=== PATIENT | male | born 1950 | race African-American/Black ===

== ENCOUNTER 2019-07-05 08:09 | Day surgery (SDC) | payer MEDICARE, MEDICAID ==
--- NOTE | 2019-06-13 12:57 | HP ---
HISTORY OF PRESENT ILLNESS: Mr. Ramos is a pleasant 68-year-old man presenting for long-standing lumbar back pain with limiting left lower extremity L5 pain. He has treated this in [place] and in [place] with epidural steroid injections and physical therapy with only limited success. He has an old MRI from [place] as well as a new MRI from [facility] reveals severe left-sided L5 foraminal stenosis that matches well with his symptoms. He hopes to move forward with surgery if possible. PAST MEDICAL HISTORY: Includes chronic pain syndrome, hepatitis C, hypertension, and osteoarthritis. SURGICAL HISTORY: Left hip replacement. CURRENT MEDICATIONS: Gabapentin, nifedipine, metoprolol, and hydrochlorothiazide. ALLERGIES: NO KNOWN DRUG ALLERGIES. REVIEW OF SYSTEMS: The patient reports back pain and leg pain. Denies fever, chills, diaphoresis. Denies abdominal pain and nausea. Denies bowel or bladder incontinence. PHYSICAL EXAMINATION: The patient is alert and oriented x3. Gait is mildly antalgic. Lower extremity motor exam is normal. ASSESSMENT: Lumbar radiculopathy. PLAN: Dr. Darling met with the patient, reviewed imaging and advocated for a left L5 facetectomy. He explained to the patient the risks, benefits, and alternatives to the procedure. The patient expressed understanding and elected to move forward with surgery as discussed. I do believe the patient is mentally competent and capable of making medical decisions for himself. We will move forward with surgery as planned. Job ID: [id number]
[2019-07-04 13:13] VITALS: BMI 25.7
[2019-07-05] MEDS ORDERED: Fentanyl 100 MCG/2 ML VIAL ONE ×3 (09:17→11:52)
[2019-07-05] MEDS ORDERED: Bupivacaine HCl 0.5%/Epinephrine 1:200,000/PF 30 ml Vial ONE (09:24)
[2019-07-05] MEDS ORDERED: Thrombin 5000 UNITS/5 ML VIAL ONE (09:24)
[2019-07-05 09:56] LABS: Anion Gap 15 mmol/L (10-20); BUN (Urea Nitrogen) 17 mg/dL (8.4-25.7); Calc. Creatinine Clearance 71 mL/min (70-130); Calcium 9.6 mg/dL (7.8-10.44); Carbon Dioxide 22 mmol/L (23-31); Chloride 104 mmol/L (98-107); Estimated GFR-MDRD 75; Glucose 91 mg/dL (80-115); Potassium 4.6 mmol/L (3.5-5.1); Sodium 136 mmol/L (136-145)
[2019-07-05] MEDS ORDERED: SUGAMMADEX SODIUM 200 MG/2 ML VIAL ONE (10:24)
[2019-07-05] MEDS ORDERED: Tamsulosin HCl 0.4 MG CAP ONE (11:16)
[2019-07-05] MEDS ORDERED: ePHEDrine 50 MG/ML VIAL ONE (12:09)
[2019-07-05] MEDS ORDERED: Ketorolac Tromethamine 30 MG/ML VIAL ONE (12:09)
[2019-07-05] MEDS ORDERED: Ondansetron PF 4 MG/2 ML Vial ONE (12:09)
[2019-07-05] MEDS ORDERED: Dexamethasone 20 MG/5 ML VIAL ONE (12:09)
[2019-07-05] MEDS ORDERED: PHENYLEPHRINE-NS 100 MCG/ML 10 ML SYRINGE ONE (12:09)
[2019-07-05] MEDS ORDERED: PROPOFOL 200 MG/20 ML VIAL ONE (12:09)
[2019-07-05] MEDS ORDERED: Rocuronium Bromide 10 MG/ML (10ML VIAL) ONE (12:09)
[2019-07-05] MEDS ORDERED: Lidocaine 1% PF 5 ML VIAL ONE (12:09)
--- NOTE | 2019-07-05 17:07 | OP ---
DATE OF PROCEDURE: 07/05/2019 ELECTRICAL LOGGING OPERATOR: Tyler Garcia PA-C. INDICATION: pain. DIAGNOSIS: Lumbar radiculopathy. PROCEDURE PERFORMED: Left L5 medial facetectomy and foraminotomy. ANESTHESIA: General. DESCRIPTION OF PROCEDURE: The patient was brought to the operating room, placed under general anesthesia. He was flipped from the supine to prone position on the operating room table. A linear incision was planned over the L5 segment. After prepping and draping and after an appropriate preoperative pause, the incision was created. Soft tissues were swept away from midline. A self-retaining retractor was placed. After confirming the appropriate level, C-arm fluoroscopy, high-speed cutting drill bit as well as 2, 3, and 4 mm Kerrison's were used to perform a laminectomy along the inferior aspect of L5 and superior aspect of S1. The laminectomy was extended laterally to encompass the medial aspect of the facet joint in order to further decompress the exiting L5 nerve root. After completing the decompression, the wound was irrigated. Hemostasis was maintained throughout. The wound was then closed in anatomic layers and a pressure dressing was applied. There were no known procedural complications. Job ID: [id number]
--- NOTE | 2019-07-05 18:15 | EKG ---
Test Reason : PREOP Blood Pressure : / mmHG Vent. Rate : 077 BPM Atrial Rate : 077 BPM P-R Int : 168 ms QRS Dur : 112 ms QT Int : 368 ms P-R-T Axes : 021 -16 020 degrees QTc Int : 416 ms Normal sinus rhythm Normal ECG No previous ECGs available Confirmed by DR. Poonam FITZPATRICK (3) on 07/05/2019 6:15:01 PM Referred By: Kelly TAYLOR Confirmed By:DR. Poonam FITZPATRICK
== END 2019-07-05 14:47 | disposition home or self-care (01) ==
LOC: SDC 08:09
PROVIDERS: ATTEND Neurological Surgery
PROC: 0ST20ZZ Resection of Lumbar Vertebral Disc, Open Approach (ICD-10-PCS; principal; 2019-07-05)
DX: M54.16 Radiculopathy, lumbar region (principal); I10 Essential (primary) hypertension; Z79.899 Other long term (current) drug therapy
CPT/HCPCS: 76000; 80048; 93005; 93010; J0670; J0690; J1100; J1885; J2001; J2405; J2704; J3010; J3490